=== PATIENT | male | born 1950 | race Caucasian/White ===

== ENCOUNTER → 2017-01-01 | Outpatient (CLI) | payer SELFPAY | LOC: COL.RAD 14:00 | DX: D69.6 Thrombocytopenia, unspecified (principal); R16.1 Splenomegaly, not elsewhere classified; K80.20 Calculus of gallbladder without cholecystitis without obstruction; K57.30 Diverticulosis of large intestine without perforation or abscess without bleeding; M43.28 Fusion of spine, sacral and sacrococcygeal region | CPT/HCPCS: Q9967 ==

== ENCOUNTER → 2017-01-14 | Outpatient (CLI) | payer OTHER | LOC: COL.RAD 09:45 | DX: D69.6 Thrombocytopenia, unspecified (principal); R16.1 Splenomegaly, not elsewhere classified ==

== ENCOUNTER → 2018-08-15 | Outpatient (CLI) | payer OTHER | LOC: COL.RAD 14:15 | DX: I86.1 Scrotal varices (principal) ==